=== PATIENT | male | born 1995 | race Caucasian/White ===

== ENCOUNTER 2021-06-08 20:16 | Emergency (ER) | payer SELFPAY ==
[~2021-06-08] VITALS: Ht 152.4 cm; Wt 61.4 kg
[~2021-06-08 20:16] MED LIST: ABILIFY5 MG PO; CEPHALEXIN500 M1 PO; NO HOME MEDICATIONS; NORCO 325 MG-51 TAB PO
[2021-06-08 21:13] LABS: COLLECTION METHOD CLEAN CATCH
[2021-06-08 21:21] LABS: BASO # 0.1 K/mm3 (0.0-0.2); BASO % 0.5 % (0.0-2.0); EOS # 0.1 K/mm3 (0.0-0.7); EOS % 0.5 % (0.0-4.0); GRAN # 8.8 K/mm3 (1.4-6.5); HEMATOCRIT 42.4 % (42.0-52.0); HEMOGLOBIN 14.8 g/dl (13.5-18.0); LYMPH % 22.9 % (20.0-51.0); MEAN CELL VOLUME 82 fl (80.0-100.0); MEAN CORPUSCULAR HEMOGLOBIN 29 pg (27-31); MEAN CORPUSCULAR HGB CONC 35 g/dl (33.0-37.0); MEAN PLATELET VOLUME 10.2 fl (7.4-10.4); MONO # 1.1 K/mm3 (0.1-0.6); MONO % 8.7 % (1.7-9.3); MUCOUS Present (NOT PRESENT); PH 6 (5-8); PLATELET COUNT 289 K/mm3 (130-400); RED BLOOD COUNT 5.15 M/mm3 (4.20-5.60); REDCELL DISTRIBUTION WIDTH-CV 12.2 % (11.5-14.5); SQUAMOUS EPITHELIAL None Seen /hpf (0-10); URINE APPEARANCE Hazy (CLEAR/HAZY); URINE BACTERIA None Seen /hpf (NONE SEEN); URINE BILIRUBIN Negative (NEGATIVE); URINE BLOOD Negative (NEGATIVE); URINE COLOR Yellow (YELLOW); URINE GLUCOSE Negative (NEGATIVE); URINE KETONE 1+ (NEGATIVE); URINE LEUKOCYTE ESTERASE Negative (NEGATIVE); URINE NITRATE Negative (NEGATIVE); URINE PROTEIN(semi-quant) Negative (NEGATIVE); URINE RBC 0-2 /hpf (0-2)
[2021-06-08 21:40] LABS: ALANINE AMINOTRANSFERASE 42 U/L (0-55); ALBUMIN 4.6 gm/dL (3.5-5.0); ALKALINE PHOSPHATASE 94 U/L (40-150); ANION GAP 12 mmol/L (7-16); AST,SGOT 75 U/L (5-34); BILIRUBIN,TOTAL 0.5 mg/dL (0.2-1.2); BLOOD UREA NITROGEN 12 mg/dL (9-21); CALCIUM 9.5 mg/dL (8.4-10.2); CARBON DIOXIDE 25 mmol/L (22-29); CHLORIDE 102 mmol/L (98-107); CREATININE, serum 0.83 mg/dL (0.72-1.25); GLUCOSE 101 mg/dL (70-99); POTASSIUM 3.4 mmol/L (3.5-4.5); SODIUM 139 mmol/L (136-145); TOTAL PROTEIN 7.1 gm/dL (6.2-8.1)
[2021-06-08 21:46] LABS: ACETAMINOPHEN < 1.0 ug/mL (10-30); ALCOHOL(ethanol),MEDICAL < 10 mg/dL (0-10); SALICYLATE < 5.0 mg/dL (15.0-30.0)
[2021-06-08 21:47] LABS: TRICYCLIC ANTIDEPRESS URINE NEGATIVE
[2021-06-08 22:00] LABS: TSH w REFLEX 0.989 uIU/mL (0.350-4.940)
[2021-06-08] MEDS ORDERED: CEPHALEXIN500 M1 PO (23:48)
[2021-06-09 00:37] VITALS: BP 141/81; PULSE 63
[2021-06-11] MEDS ORDERED: DOXYCYCLINE 10100 MG PO (00:22)
== END 2021-06-09 00:37 | disposition home or self-care (01) ==
LOC: COL.ER 20:16
PROVIDERS: Physician Assistant
DX: L08.9 Local infection of the skin and subcutaneous tissue, unspecified (principal); F23 Brief psychotic disorder; R45.851 Suicidal ideations; Z20.822 Contact with and (suspected) exposure to COVID-19
CPT/HCPCS: J7030